=== PATIENT | male | born 1985 | race Caucasian/White ===

== ENCOUNTER 2017-09-26 13:29 | Emergency (ER) | payer SELFPAY ==
--- NOTE | 2017-09-26 15:28 | ED ---
Laceration/Wound HPI - HPI Summary HPI Summary: 32 male presents to ED with complaints of left ear laceration that he sustained while at work working with a tima. He does not know exactly what cut his ear. This occurred just [employer]. Denies feeling dizzy or lightheaded. Denies any PMHx. Tetanus is not up to date. Denies any hearing loss or ringing in his ears. No other injuries or complaints. No head injury no LOC. No medications. - History of Current Complaint Stated Complaint: LT EAR INJURY Time Seen by Provider: 09/26/17 13:52 Hx Obtained From: Patient Mechanism of Injury: Sharp/Blunt Trauma Onset/Duration: Sudden Onset Aggravating: Movement - touch Alleviating: Compression Timing: Constant Onset Severity: Mild Current Severity: Mild Pain Intensity: 3 Pain Scale Used: 0-10 Numeric Associated Signs & Symptoms: Negative PMH/Surg Hx/FS Hx/Imm Hx Endocrine/Hematology History: Denies: Hx Diabetes Cardiovascular History: Denies: Hx Hypertension - Surgical History Surgery Procedure, Year, and Place: n/a - Immunization History Immunizations Up to Date: Yes Infectious Disease History: No Infectious Disease History: Denies: Traveled Outside the [place] in Last 30 Days - Family History Known Family History: Positive: None - Social History Alcohol Use: Occasionally Substance Use Type: Reports: None Smoking Status (MU): Unknown if Ever Smoked Review of Systems Constitutional: Negative Cardiovascular: Negative Respiratory: Negative Musculoskeletal: Negative Positive: Other - laceration to left ear Neurological: Negative All Other Systems Reviewed And Are Negative: Yes Physical Exam Triage Information Reviewed: Yes Vital Signs On Initial Exam: Initial Vitals Temp Pulse Resp BP Pulse Ox 99.1 F 89 20 156/94 97 09/26/17 13:34 09/26/17 13:34 09/26/17 13:34 09/26/17 13:34 09/26/17 13:34 Vital Signs Reviewed: Yes Appearance: Positive: Well-Appearing, No Pain Distress, Well-Nourished Skin: Positive: Warm, Skin Color Reflects Adequate Perfusion, Dry, Other - laceration to left external ear at pinna, lobule and helix straight through cartilage of entire ear. some cartilage exposed and noted on exam.~4cm in length total another small linear laceration approximately 1.5cm in length at tragus area where ear meets face. part of lobule/helix, partially avulsed. Negative: Cold, Cyanosis @, Pale, Erythema @ Head/Face: Positive: Normal Head/Face Inspection Eyes: Positive: Conjunctiva Clear ENT: Positive: Hearing grossly normal, Pharynx normal, TMs normal Neck: Positive: Supple, Nontender Respiratory/Lung Sounds: Positive: Clear to Auscultation, Breath Sounds Present. Negative: Rales, Rhonchi, Wheezes Cardiovascular: Positive: Normal, RRR, Pulses are Symmetrical in both Upper and Lower Extremities. Negative: Murmur, Rub Musculoskeletal: Positive: Normal, Strength/ROM Intact Neurological: Positive: Normal, Sensory/Motor Intact, Alert, Oriented to Person Place, Time - Nicole Coma Scale Coma Scale Total: 15 Procedures - Laceration/Wound Repair 1 Location: Other - ear Description: Linear - jagged, throgh entire cartilage of left ear Anesthesia: Local, 1.0%, Lido Length, Depth and Shape: 4cm through helix, 1cm through tragus, linear, partially avulsed lobule Betadine Prep?: Yes Irrigated w/ Saline (ccs): 500 Laceration/Wound Explored: clean, no foreign body removed Closure: Single Layer Suture Type: Nylon Number of Sutures: 12 Sterile Dressing Applied?: Yes - [facility] - Vital Signs Vital Signs Temp Pulse Resp BP Pulse Ox 09/26/17 13:34 99.1 F 89 20 156/94 97 - Laboratory Lab Statement: Any lab studies that have been ordered have been reviewed, and results considered in the medical decision making process. Laceration Repair Course/Dx - Course Course Of Treatment: lacerations were thoroughly irrigated. lacerations were anethesized and sutured without complication with 12 simple interrupted sutures. Patient tolerated procedure well and ear became well approximated at end of procedure. tetanus was updated, given ibuprofen. apply ice, do not get wet for 24-48 hours, keep clean and dry, apply triple antibiotic and continue NSAID at home. Remove in 7-10 days. Follow up with PCP. Aware of worsening signs and symptoms to watch out for. - Differential Dx Differental Diagnoses: Avulsion, Laceration - Clinical Impression Provider Diagnoses: Laceration of ear Discharge - Discharge Plan Condition: Stable Disposition: HOME Patient Education Materials: Care For Your Stitches (ED), Laceration (ED) Referrals: [facility] [Outside] Additional Instructions: Take ibuprofen as needed for pain and inflammation. Do not get stitches wet for 24 hours. Keep covered for 24-48 hours. Gently rinse and pat dry. Keep clean and dry. Apply cool compresses to help soothe pain and for inflammation. Apply triple antibiotic ointment. Have stitches removed in 7-10 days. Any complications or new/worsening symptoms please return sooner. Follow up with PCP.
[2017-09-26] MEDS ORDERED: Lidocaine 2% 10 ML* VIAL INJ ONE (16:20)
[2017-09-26] MEDS ORDERED: Lidocaine 1% INJ* 10 MG/ML 30 ML SDV ONE (16:35)
[2017-09-26] MEDS ORDERED: Ibuprofen TAB* 600 MG PO ONE (17:57)
[2017-09-26] MEDS ORDERED: Tetan/Diph/Pertus SYR(Tdap)* 0.5 ML SYR(BOOSTRIX) use SYR IM ONE (17:57)
[2017-09-26 18:23] VITALS: BP 149/84
== END 2017-09-26 18:22 | disposition home or self-care (01) ==
LOC: ED 13:29
DX: S01.312A Laceration without foreign body of left ear, initial encounter (principal); W27.8XXA Contact with other nonpowered hand tool, initial encounter; Y92.9 Unspecified place or not applicable; Z23 Encounter for immunization
CPT/HCPCS: 12013; 90715; 99282; A9270-GY